=== PATIENT | female | born 1965 | race Caucasian/White ===

== ENCOUNTER 2017-03-13 15:59 | Inpatient (IN) ==
[2017-03-13 17:41] LABS: MANUAL DIFF NEEDED? NO
[2017-03-13 17:44] LABS: BASO% 1.2 % (0.0-0.8); EOS# 0.12 X1000 (0.0-0.7); EOS% 0.7 % (0.0-10.0); HEMATOCRIT 38.1 % (37.0-47.0); HEMOGLOBIN 12.7 g/dL (12.0-16.0); IMM GRAN% 0.6 % (0.0-0.5); LYMPH# 1.53 X1000 (1.2-3.4); LYMPH% 9.5 % (20.5-51.1); MCH 27.9 PG (27-31); MCHC 33.3 g/dL (33-37); MCV 83.6 FL (81-99); MONO# 1.38 X1000 (0.11-0.59); MONO% 8.6 % (1.7-9.3); NEUT% 79.4 % (42.2-75.2); PLT 254 X1000 (130-400); RBC 4.56 XMIL (4.2-5.4)
[2017-03-13] MEDS ORDERED: VANCOMYCIN IV PER PHARMACY MISC SCH (17:45)
[2017-03-13] MEDS ORDERED: ZOSYN 3.375 GM/NS 3.375 GM/50 ML IVPB IV SCH (17:45)
[2017-03-13 17:52] LABS: INR 1.06; PROTIME 11.2 Seconds (9.2-11.7)
[2017-03-13 17:59] LABS: HEMOGLOBIN A1C 7.4 % (4.8-6.0)
[2017-03-13] MEDS: MORPHINE IV PRN ×2 (18:06→22:04)
[2017-03-13 18:08] LABS: ALBUMIN 3.8 g/dL (3.5-5.0); CALCIUM 8.8 mg/dL (8.8-10.2); MAGNESIUM 1.5 mg/dL (1.5-2.7); TOTAL BILIRUBIN 0.57 mg/dL (0.20-1.00); TOTAL PROTEIN 7.6 g/dL (6.3-8.3)
[2017-03-13] MEDS: NS 1,000 ML IV SCH (18:08)
--- NOTE | 2017-03-13 18:12 | HISTORY AND PHYSICAL ---
CHIEF COMPLAINT: Right intergluteal abscess. HISTORY OF PRESENT ILLNESS: Mrs. Dodge is a 51-year-old female with a history of COPD, nicotine dependence, obstructive sleep apnea, chronic pain who presents from walk-in clinic with 4-day history of right intergluteal abscess. She has had pain and swelling that is increased in size and intensity since Thursday, she denies any fevers but does report chills. The area spontaneously ruptured and has been draining a foul-smelling purulent fluid which has been causing her a great amount of pain and stress. She reports not being able to eat and has been throwing up and has occasional diarrhea. She went to the walk-in clinic and was felt that this needed to be handled in the OR and she was directly admitted here. We are currently awaiting lab but her vitals are stable, she is not febrile, hypotensive or tachycardic. On physical exam, the entirety of the right gluteal area is edematous and erythematous. There is a small hole near the center of the abscess that is not draining any fluid at this time but is clearly where the abscess ruptured. She is now going to be admitted for further treatment and evaluation. PAST MEDICAL HISTORY: 1. COPD. 2. Obstructive sleep apnea. 3. Depression. 4. Hypertension. 5. Restless leg syndrome. 6. Chronic pain. 7. Questionable history of diabetes. Hemoglobin A1c done in 2013 showed 8% but she denies any history of diabetes. PAST SURGICAL HISTORY: Left knee x2, cataract surgery, lumbar laminectomy, neck surgery x2, breast biopsy. SOCIAL HISTORY: Patient smokes a pack a day. She reports half a gram of marijuana use a month. She denies alcohol use. She is and lives alone. She is on disability. FAMILY HISTORY: Mother is at the bedside. She has a history of tongue cancer. Father with laryngeal cancer. REVIEW OF SYSTEMS: A 14 point review of systems obtained and found to be negative with the exception of the HPI. HOME MEDICATIONS: Currently being compiled. ALLERGIES: To Haldol, oxycodone. PHYSICAL EXAMINATION: VITAL SIGNS: Blood pressure is 108/67, heart rate 85, respiratory rate 22, O2 saturation 100% on room air, temperature is 98.9 degrees. GENERAL: This is an obese female lying in hospital bed in no acute distress. NEUROLOGIC: She is awake, alert, oriented. She follows commands without focal deficits. HEENT: Head is atraumatic and normocephalic. Pupils are equal, round, reactive to light. Oral mucosa is moist. Trachea is midline. There is no JVD. CHEST: Clear auscultation bilaterally. CV: Regular rate and rhythm. S1-S2 is noted. No murmurs. GI: Soft, nondistended. She has some diffuse tenderness to palpation. There is no rigidity. RECTAL: Partal exam. Right gluteal area is erythematous and edematous with induration and small hole without drainage at this time as reported in the HPI. She does have noticeable wart like lesions about the rectum and perianal area. EXTREMITIES: Without edema, clubbing or cyanosis. Pulses are palpable bilaterally. DIAGNOSTIC DATA: Pending. ASSESSMENT/PLAN: 1. Right intergluteal abscess: We are currently drawing blood cultures, lactic acid and full chemistry and hematology panels. We are going to also check a CT of the abdomen and pelvis and start her on vancomycin and Zosyn and consult surgery. 2. Abdominal pain: Unclear as to the etiology but we are going to go ahead and check a CT of the abdomen and pelvis, give her some Zofran and fluids. 3. Hypertension: Will continue appropriate medications once they have been reconciled. 4. Chronic obstructive pulmonary disease: Will check a 2 view chest x-ray and add p.r.n. nebs every 6 hours, lungs are clear at this time. 5. Depression: Will continue appropriate medications once they have been compiled. 6. Nicotine dependence: Patient has been highly advised to quit smoking. Will write a nicotine patch and continue daily cessation education. 7. Deep vein thrombosis prophylaxis will be provided with Lovenox. Further recommendations to follow. Dictated by BARBARA Aguillon for Stefano Sorenson MD cc: BARBARA Aguillon MD [facility]
[2017-03-13] MEDS ORDERED: NS 2,000 ML IV ONE (18:13)
[2017-03-13 18:14] LABS: AMYLASE 21 U/L (20-200); HDL 22 mg/dL (45-65); LDL 100 mg/dL; LIPASE 33 U/L (13-60); POTASSIUM 2.5 mmol/L (3.5-5.1); TRIGLYCERIDES 264 mg/dL (35-135); VLDL 53 mg/dL
[2017-03-13] MEDS: NICODERM PATCH TD SCH (18:14)
[2017-03-13] MEDS ORDERED: MAGNESIUM SULFATE 2 GM/S.W.I. 2 GM/50 ML IVPB IV ONE (18:18)
--- NOTE | 2017-03-13 19:17 | Diag Imaging Result Doc PS360 ---
EXAM: ABDOMEN/PELVIS W/O CONTRAST INDICATION: gluteal abscess TECHNIQUE: COMPARISON: None. FINDINGS: There is mild mucous plugging involving a few bronchial branches at the right lung base. There is minimal right basilar atelectasis. There is diffuse hepatic steatosis. There is a 1.4 cm splenic hypodensity that statistically most likely represents a protein filled cyst or perhaps a small hemangioma. It is nonspecific. There is a 1.9 cm right adrenal mass that is low in density. Statistically it very likely represents an adenoma. The pancreas is unremarkable. There are couple tiny cyst density foci arising from the left kidney. There are no renal stones and there is no hydronephrosis. The urinary bladder is unremarkable. The appendix is normal. There has been a previous hysterectomy. The GI tract is grossly unremarkable. There is subcutaneous gluteal edema and a focal inflammatory opacity in the perianal soft tissues on the right measuring approximately 3.3 x 1.9 cm. This certainly may represent an abscess. However, this cannot be distinguished from inflammatory phlegmon with no IV contrast. IMPRESSION: 1.Focal inflammatory changes in the perianal region on the right assumed to represent small abscess. Please see above discussion. 2.Diffuse hepatic steatosis. 3.Mild mucous plugging at the right lung base with minimal subsegmental atelectasis. Electronically signed by Ildefonso Washington 03/13/2017 7:15 PM
--- NOTE | 2017-03-13 19:33 | Diag Imaging Result Doc PS360 ---
EXAM: CHEST-2 VIEWS INDICATION: cough TECHNIQUE: 2 views COMPARISON: 06/05/2015 FINDINGS: The lungs are grossly clear. There is no discrete pleural fluid collection or pneumothorax. The cardiomediastinal silhouette and central vasculature are grossly unremarkable. IMPRESSION: No evidence of acute pathology by plain radiograph. Electronically signed by Ildefonso Washington 03/13/2017 7:31 PM
--- NOTE | 2017-03-13 21:18 | CONSULTATION ---
DATE OF CONSULTATION: 03/13/2017 REASON FOR CONSULTATION: Right perianal abscess. HISTORY OF PRESENT ILLNESS: This is a 51-year-old female with a history of COPD, obstructive sleep apnea, chronic pain and nicotine dependence with multiple previous skin infections who presented today with a 4-day history of right perianal pain and swelling. It spontaneously ruptured and has been draining foul-smelling purulent fluid. It is worsened to direct touch and sitting on it. There are no relieving factors. She has not been on any antibiotics. She was sent for surgical evaluation, admission and IV antibiotics. PAST MEDICAL HISTORY: As described above in HPI. PAST SURGICAL HISTORY: Left knee surgery x2, cataract surgery, lumbar laminectomy, neck surgery x2, breast biopsy. ALLERGIES: Haldol, oxycodone. FAMILY HISTORY: Positive for tongue cancer in mother and laryngeal cancer the father. SOCIAL HISTORY: She smokes a pack of cigarettes per day and uses marijuana. She denies alcohol use. HOME MEDICATIONS: Lyrica, Xanax, Prozac, atenolol, Ambien. PHYSICAL EXAMINATION: Vital Signs: Vital signs: Temperature 98.4 degrees, pulse 81, respirations 16, blood pressure 100/53. General: Well-developed female who appears to be uncomfortable but nontoxic appearing. Neurologic: She is alert and oriented x4. No acute distress. Light touch is intact throughout. CV: Regular rate and rhythm. Respiratory: No work of breathing. She has bilateral breath sounds. GI: Soft, nontender, nondistended. No hernia appreciated. Extremities: No clubbing, cyanosis, or edema. Skin: Warm and dry. No rash. Rectal Exam: She does have significant erythema across her right gluteal skin. There is a focal area of induration and focal tenderness in the right perianal area and along the external skin. There is a opening perhaps a centimeter and a half long and a centimeter or 2 deep draining some purulent fluid. This wound was probed with a Q-Tip. I do not think it communicates with her rectum. There are also numerous wartlike lesions in the perianal area and adjacent to this abscess. LABORATORY: White blood cell count 16,000, hemoglobin 12. Sodium 136, potassium 2.5, chloride 88, CO2 31, BUN 19, creatinine 1.6, glucose 228. Hemoglobin A1c 7.4. Liver function tests essentially normal except for alkaline phosphatase of 128. Plasma lactate 2.3. Serum test negative. IMAGING: CT of abdomen, pelvis was reviewed by me. There is a focal inflammatory process in the right perianal soft tissue likely representing an abscess. There is also diffuse hepatic steatosis, a small cyst or hemangioma in the spleen and a small 1.9 cm right adrenal mass likely representing an adenoma. There are a few small cystic densities in the left kidney. ASSESSMENT/PLAN: A 51-year-old female with right gluteal perianal abscess. It is draining. She has significant cellulitis and pain and would benefit from admission for IV antibiotics and local wound care to check for significant improvement. If she does not improve then she may need trip to the operating room for further exploration and drainage and to rule out a fistula in ano. In addition, she will at some point need treatment of her condyloma and [employer] consultation may be needed to rule out any cervical lesions and to check her Pap smear. cc: MD Stefano Villa MD
[2017-03-13] MEDS: POTASSIUM CHLORIDE 20 MEQ/SWI 20 MEQ/100 ML IVPB IV SCH (21:41)
[2017-03-13] MEDS: DUONEB (A & A) INH PRN (21:45)
[2017-03-13] MEDS: ZOFRAN IV PRN (22:04)
[2017-03-13] MEDS: VANCOMYCIN 1,800 MG in NS 250 ML IV SCH (23:44)
[2017-03-13] MEDS: HUMALOG SUBQ SCH (23:49)
[2017-03-14] MEDS ORDERED: AMBIEN PO PRN (00:01)
[2017-03-14] MEDS: MORPHINE IV PRN ×5 (02:35→21:32)
[2017-03-14] MEDS: ZOSYN 2.25 GM/NS 2.25 GM/50 ML IVPB IV SCH ×3 (02:35→18:08)
[2017-03-14] MEDS: ZOFRAN IV PRN ×5 (02:35→21:33)
[2017-03-14] MEDS: NS 1,000 ML IV SCH ×2 (02:36→07:01)
[2017-03-14] MEDS: POTASSIUM CHLORIDE 20 MEQ/SWI 20 MEQ/100 ML IVPB IV SCH (03:32)
[2017-03-14 04:02] LABS: URINE SOURCE CLEAN CATCH
[2017-03-14 04:05] LABS: BILIRUBIN URINE NEGATIVE (NEGATIVE); BLOOD URINE SMALL (NEGATIVE); COLOR YELLOW; GLUCOSE URINE NEGATIVE (NEGATIVE); LEUKOCYTES URINE LARGE (NEGATIVE); NITRITE URINE POSITIVE (NEGATIVE); PROTEIN URINE 100 mg/dL (NEGATIVE); SP GRAVITY URINE 1.024; TURBIDITY URINE TURBID (CLEAR); UROBILINOGEN URINE NORMAL (NORMAL)
[2017-03-14 04:06] LABS: URINE MICRO REVIEW NEEDED? YES
[2017-03-14 04:26] LABS: UR CREAT RANDOM 244.3 mg/dL (11-20)
[2017-03-14 04:29] LABS: UR EPITHELIAL CELLS >10 /HPF (<10); URINE BACTERIA 4+ /HPF; URINE CULTURE NEEDED? YES; URINE RBC <10 /HPF (<10); URINE WBC TNTC /HPF (<10)
[2017-03-14 06:04] LABS: HEMATOCRIT 35.4 % (37.0-47.0); HEMOGLOBIN 11.5 g/dL (12.0-16.0); MCH 27.4 PG (27-31); MCHC 32.5 g/dL (33-37); MCV 84.5 FL (81-99); MPV 11.9 FL (7.4-10.4); RBC 4.19 XMIL (4.2-5.4)
[2017-03-14 06:12] LABS: CALCIUM 8.7 mg/dL (8.8-10.2); POTASSIUM 2.6 mmol/L (3.5-5.1)
[2017-03-14] MEDS: HUMALOG SUBQ SCH ×5 (06:41→20:57)
[2017-03-14] MEDS ORDERED: KLOR-CON PO ONE (08:04)
[2017-03-14] MEDS: LOVENOX SUBQ SCH (08:53)
[2017-03-14] MEDS: NICODERM PATCH TD SCH (08:53)
[2017-03-14] MEDS: DUONEB (A & A) INH PRN ×3 (09:05→21:47)
[2017-03-14] MEDS: XANAX PO PRN ×2 (14:00→21:02)
--- NOTE | 2017-03-14 14:11 | PROGRESS NOTE ---
DATE: 03/14/2017 SUBJECTIVE: She continues to complain of some perianal pain. OBJECTIVE: Vital Signs: She is afebrile. Vital signs are stable. General: She is awake and alert. No acute distress. Skin: The perianal infection is about the same as yesterday. LABORATORY: White blood cell count 12,000, hemoglobin 11. Electrolytes reviewed and notable for potassium of 2.6, creatinine is improved to 1.4. A wound culture Gram stain shows gram-negative rods and gram-positive cocci. ASSESSMENT AND PLAN: A 51-year-old female with perianal abscess and significant buttock cellulitis. She will continue vancomycin and Zosyn. We are awaiting culture data. We are providing local wound care with cleaning the wound and packing it. Her white blood cell count is starting to improve. She also is being treated for a UTI. cc: MD Stefano Villa MD
--- NOTE | 2017-03-14 14:27 | PROGRESS NOTE ---
DATE: 03/14/2017 SUBJECTIVE: This patient is complaining of gluteal pain. She denies nausea, vomiting, no diarrhea, no constipation. Surgery department on board. Will follow their recommendations. OBJECTIVE: Vital Signs: Temperature 97.6 degrees, pulse 68, respiratory rate 18, blood pressure 125/102, O2 saturation 95% on room air. HEENT: Head normocephalic. No trauma. PERRLA. Neck: Supple. No JVD. No masses. Central trachea. Chest: Clear to auscultation. No wheezing. No rales. Cardiovascular: RRR. No murmurs. Abdomen: Soft, nontender, nondistended. No hepatosplenomegaly. Rectal area: Right gluteal area is erythematous with induration, there is a small hole without drainage at this time, she does have noticeable wart like lesions about the rectum and perianal area. LABORATORY: WBC 12.1, hemoglobin 11.5, hematocrit 35.4, platelets 221,000. Sodium 138, potassium 2.6, chloride 93, bicarbonate 31, BUN 20, creatinine 1.4, glucose 180, calcium 8.7. Urine culture negative. Right buttock secretion culture negative and blood culture negative so far. ASSESSMENT AND PLAN: 1. Right gluteal abscess. Continue with broad spectrum antibiotics, continue with IV fluid, surgery department following this patient. 2. Abdominal pain. This is better. We did a CT of the abdomen and pelvis that showed a focal inflammatory changes in the perianal region and right assumed to represent a small abscess, hepatic steatosis. 3. Hypertension. Continue with home medication. 4. Chronic obstructive pulmonary disease not in exacerbation. Continue with the same management. 5. Depression. Continue with home medications, I put this patient back on her medications today. 6. Nicotine dependence. This patient has been highly advised against tobacco abuse. Will continue with daily cessation education and nicotine patch. 7. Deep vein thrombosis prophylaxis. Continue with Lovenox. 8. Hypokalemia. I will replace the potassium today. cc: Stefano Sorenson MD
[2017-03-14] MEDS: LYRICA PO SCH (20:57)
[2017-03-14] MEDS ORDERED: BENADRYL PO PRN (23:21)
[2017-03-15] MEDS: ZOSYN 2.25 GM/NS 2.25 GM/50 ML IVPB IV SCH ×6 (00:38→18:08)
[2017-03-15] MEDS: ZOFRAN IV PRN ×6 (01:53→22:23)
[2017-03-15] MEDS: MORPHINE IV PRN ×6 (01:53→22:22)
[2017-03-15] MEDS: NS 1,000 ML IV SCH ×2 (04:08→10:00)
[2017-03-15] MEDS: HUMALOG SUBQ SCH ×4 (06:05→20:39)
[2017-03-15 06:17] LABS: HEMATOCRIT 31.5 % (37.0-47.0); HEMOGLOBIN 10.1 g/dL (12.0-16.0); MCH 28.1 PG (27-31); MCHC 32.1 g/dL (33-37); MCV 87.7 FL (81-99); MPV 11.9 FL (7.4-10.4); RBC 3.59 XMIL (4.2-5.4)
[2017-03-15 06:38] LABS: CALCIUM 8.2 mg/dL (8.8-10.2)
[2017-03-15] MEDS ORDERED: KLOR-CON PO ONE (08:02)
[2017-03-15] MEDS: PROZAC PO SCH (08:05)
[2017-03-15] MEDS: VANCOMYCIN 1,800 MG in NS 250 ML IV SCH (08:05)
[2017-03-15] MEDS: LYRICA PO SCH ×3 (08:06→16:36)
[2017-03-15] MEDS: NICODERM PATCH TD SCH (08:06)
[2017-03-15] MEDS: LOVENOX SUBQ SCH (08:07)
[2017-03-15] MEDS: XANAX PO PRN ×3 (08:20→20:44)
--- NOTE | 2017-03-15 09:20 | PROGRESS NOTE ---
DATE: 03/15/2017 SUBJECTIVE: She continues to complain of perianal pain. OBJECTIVE: Vital Signs: She is afebrile. Vital signs are stable. General: She is alert and oriented x4. No acute distress. Skin: The perianal area was examined. There is definite decrease in the erythema of her right gluteal skin. The perianal abscess continues to have some cloudy purulent drainage. However, there is no deep tracking and no more fluctuance of the area. Laboratory: White blood cell count 8000. The wound culture is pending. ASSESSMENT/PLAN: A 51-year-old female with perianal abscess which appears to be improving. We will continue local wound care and Zosyn and vancomycin as we await the wound culture results. cc: MD Stefano Villa MD
--- NOTE | 2017-03-15 14:34 | PROGRESS NOTE ---
DATE: 03/15/2017 SUBJECTIVE: This patient is still complaining of right gluteal pain. She denies nausea, vomiting, diarrhea. No constipation. Surgery Department on board. No plan for surgery at this moment. We will follow the recommendations. OBJECTIVE: Vital Signs: Temperature 98.5 degrees, pulse 92, respiratory rate 22, blood pressure 123/57, oxygen saturation 97% on room air. HEENT: Head normocephalic. No trauma. PERRLA. Neck: Supple. No JVD. No masses. Central trachea. Chest: Clear to auscultation. No wheezing. No rales. Abdomen: Soft, nontender, nondistended. No hepatosplenomegaly. Cardiovascular: Regular rhythm and rate. No murmurs. Rectal: Right gluteal area is indicated erythematous with induration. This is a small hole without drainage at this time because Surgery just packed this. She does have noticeable wart-like lesions around the rectal area and around the rectum and perianal area. LABORATORY: WBC 8, hemoglobin 10.1, hematocrit 31.5, platelet 186,000. Sodium 140, potassium 3, chloride 97, bicarbonate 29, BUN 17, creatinine 1.5, glucose 143, calcium 8.2. ASSESSMENT AND PLAN: 1. Right gluteal abscess. Continue with broad spectrum antibiotics, continue with IV fluids. Surgery Department is following this patient. 2. Hypokalemia. I will replace the potassium today. 3. Abdominal pain. This is getting better. 4. Hypertension. Continue with home medication. 5. Chronic obstructive pulmonary disease. Not in exacerbation. 6. Depression. Continue with home medication. 7. Nicotine dependence. This patient has been highly advised against tobacco abuse. I will continue with daily cessation education and nicotine patch. cc: Stefano Sorenson MD
[2017-03-15] MEDS: ULTRAM PO PRN (20:44)
[2017-03-15] MEDS: DUONEB (A & A) INH PRN (23:17)
[2017-03-16] MEDS: NS 1,000 ML IV SCH ×3 (00:32→14:02)
[2017-03-16] MEDS: ZOSYN 2.25 GM/NS 2.25 GM/50 ML IVPB IV SCH ×4 (00:32→14:02)
[2017-03-16] MEDS: MORPHINE IV PRN ×5 (05:56→22:25)
[2017-03-16] MEDS: ZOFRAN IV PRN ×3 (05:56→22:26)
[2017-03-16] MEDS: HUMALOG SUBQ SCH ×4 (06:03→21:14)
[2017-03-16 07:08] LABS: HEMATOCRIT 32.1 % (37.0-47.0); HEMOGLOBIN 10.1 g/dL (12.0-16.0); MCH 28.1 PG (27-31); MCHC 31.5 g/dL (33-37); MCV 89.2 FL (81-99); MPV 11.9 FL (7.4-10.4); RBC 3.6 XMIL (4.2-5.4)
[2017-03-16 07:16] LABS: CALCIUM 8.9 mg/dL (8.8-10.2); POTASSIUM 3.3 mmol/L (3.5-5.1)
[2017-03-16] MEDS ORDERED: KLOR-CON PO ONE (07:49)
[2017-03-16] MEDS: LYRICA PO SCH ×3 (09:10→21:14)
[2017-03-16] MEDS: PROZAC PO SCH (09:10)
[2017-03-16] MEDS: XANAX PO PRN ×3 (09:10→22:25)
[2017-03-16] MEDS: LOVENOX SUBQ SCH (09:11)
[2017-03-16] MEDS: NICODERM PATCH TD SCH (09:12)
--- NOTE | 2017-03-16 10:23 | PROGRESS NOTE ---
DATE: 03/16/2017 SUBJECTIVE: This patient still complaining of right gluteal pain. She denies nausea, vomiting, and constipation. She has been having diarrhea. I will ask for a clostridium difficile toxin and antigen to rule out clostridium difficile colitis. Surgery Department is following this patient. I have consulted Infectious Disease Department. Cultures showed gram-positive cocci on the right buttock. OBJECTIVE: Vital Signs: Temperature 98.4 degrees, pulse 81, respiratory rate 16, blood pressure 136/66, oxygen saturation 90 on 2 L of nasal cannula. HEENT: Head normocephalic. No trauma. Pupils equal, round, and reactive to light and accommodation. Neck: Supple. No JVD. No masses. Central trachea. Chest: Clear to auscultation. No wheezing. No rales. Abdomen: Soft, nontender, nondistended. No hepatosplenomegaly. Cardiovascular: Regular rate and rhythm. No murmurs. Gluteal Area: Gluteal area on the right side she has an erythematous area with redness and induration. There is a small hole that is draining a secretion that is yellowish. Also she does have wart-like lesions around the rectal area and perianal area. Neurological Examination: The patient is alert and oriented x3. No focal deficits. LABORATORY: WBC 8.5, hemoglobin 10.1, hematocrit 32.1 platelets 205,000. Sodium 139, potassium 3.3, chloride 98, bicarbonate 28. BUN 12, creatinine 1.5, glucose 150. Calcium 8.9, magnesium 1.7. ASSESSMENT AND PLAN: 1. Right gluteal abscess. We have a positive culture that showed gram-positive cocci. Continue with broad spectrum antibiotics, IV fluids. Surgery department is following this patient. 2. Hypokalemia. I will replace the potassium today. 3. Abdominal pain. This is getting better. 4. Diarrhea. I will ask for a clostridium difficile antigen and toxin today to rule out clostridium difficile colitis. 5. Chronic obstructive pulmonary disease, not in exacerbation. 6. Depression. Continue with home medication. 7. Nicotine dependence. This patient has been highly advised against tobacco abuse. 8. Tobacco abuse. I will continue with daily cessation education and nicotine patch. cc: Stefano Sorenson MD
[2017-03-16] MEDS ORDERED: VANCOMYCIN ORAL SOLN PO SCH (17:00)
--- NOTE | 2017-03-16 17:12 | CONSULTATION ---
DATE OF CONSULTATION: 03/16/2017 CONCLUSION: The patient has a right buttock abscess which is draining through a fistula. She also after being started on antibiotics for 2 days developed severe diarrhea. Her Clostridium difficile antigen is positive but the Clostridium difficile toxin is negative. Technically speaking this means that the patient does not have Clostridium difficile causing her diarrhea. I think given the fact that she was been on put on antibiotics, she has diarrhea and has the Clostridium difficile antigen, I still think that the diarrhea is actually being caused by Clostridium difficile and its toxin but it is in such a low amount that it might not be detected on the test for it. RECOMMENDATIONS: The buttock abscess on Gram stain has gram-positive cocci. Therefore, I am going to keep the vancomycin by IV going but I am going to stop the Zosyn. Also I have added p.o. vancomycin. DISCUSSION: The patient tells me that approximately a week ago she started having fever and noticed that there was some drainage coming from her right buttock. Also, she developed progressive pain in the area. Approximately 2 days ago she started having diarrhea. The patient's lab study shows the CBC initially had a white count of 16,000, now it is 8,540, hemoglobin 10.1, and platelet count 205,000. Creatinine is 1.5, GFR is 37. Urinalysis showed bacteria and white blood cells, however, the culture was read as no pathogenic growth. As mentioned above, the Clostridium difficile antigen was positive but the toxin was negative. A Gram stain taken from the drainage coming from the patient's right buttock shows gram-positive cocci. The patient in the past 2 days has noticed some dyspnea. She is not having. She is not having any chest pain. 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 She had a hysterectomy. REVIEW OF SYSTEMS: Eyes and ears: She denies difficulty hearing or seeing. Neck: No stiffness. Respiratory: The patient in the past 2 days has had some shortness of breath but none before that. She is not coughing. Cardiac: No chest pain or palpitations. Genitourinary: No dysuria or flank pain. Gastrointestinal: No nausea or vomiting but as mentioned above in the past 2 days she has developed diarrhea. Bones, joints, muscles: Patient had surgery on her left knee and it periodically gives her pain without swelling. Neurologic: No seizures. No motor or sensory deficit. Endocrine: Patient has been informed now that she is a diabetic. She does not have any thyroid disease. PREVIOUS HOSPITALIZATIONS AND OPERATIONS: She had surgery on her left knee. She had C-spine and lumbar spine surgery. She also had 2 bladder surgeries. MEDICAL DISEASES: As mentioned above, patient has been informed now that she is diabetic. She also has hypertension and depression. INFECTIOUS DISEASE HISTORY: Positive for UTI. Negative for pneumonia. FAMILY HISTORY: Positive for diabetes mellitus, hypertension, myocardial infarction, and stroke. SOCIAL HISTORY: The patient lives in [place]. She smoke cigarettes. She does not drink alcoholic beverages or abuse drugs. She is . She lives alone. She has a dog as a pet. She is disabled. ALLERGIES: Haldol and oxycodone. HOME MEDICATIONS: Ambien, Lyrica, Prozac, atenolol/chlorthalidone, and Xanax. PHYSICAL EXAMINATION: Vital Signs: Temperature is 98.3 degrees, pulse 75, respirations 16, blood pressure 118/64. Patient is 5 feet 6 inches tall, weighs 221 pounds. General: This is an obese, middle-aged female. She is in no acute distress at this time. Head eyes, ears, nose, throat: She can hear my spoken words and see near objects. No drainage is noted from the nose or ears. She is wearing dentures. Neck: No meningismus. Thorax: Increased AP diameter to the chest. Lungs: Clear to auscultation. Cardiovascular: Heart rate is regular. Abdomen: Soft and nontender. Pelvic examination: I examined the patient's right buttock. There is a fistulous opening near the anus and it has some lesions circling it but not actually vesicles, but they may have been vesicles that had burst already. They may be also plantar warts. Neurologic: Patient is alert. She can move her extremities. There is no tremor. Her sensation is intact to touch. Her memory as regarding her medical history is intact. Integument: No rash noted. Thank you for the consultation. cc: MD Stefano Frey MD
[2017-03-16] MEDS: VANCOMYCIN ORAL SOLN PO SCH ×2 (18:43→23:37)
[2017-03-16] MEDS: VANCOMYCIN 1,800 MG in NS 250 ML IV SCH (21:14)
[2017-03-17] MEDS ORDERED: CALMOSEPTINE OINTMENT TOP PRN (02:44)
[2017-03-17] MEDS: ZOFRAN IV PRN ×5 (02:47→19:56)
[2017-03-17] MEDS: MORPHINE IV PRN ×5 (02:48→19:33)
[2017-03-17] MEDS: NS 1,000 ML IV SCH ×2 (04:47→22:18)
[2017-03-17] MEDS: VANCOMYCIN ORAL SOLN PO SCH ×3 (04:47→18:49)
[2017-03-17] MEDS: HUMALOG SUBQ SCH ×4 (06:05→22:09)
[2017-03-17 06:11] LABS: MANUAL DIFF NEEDED? NO
[2017-03-17 06:29] LABS: BASO% 0.3 % (0.0-0.8); EOS# 0.33 X1000 (0.0-0.7); EOS% 4.5 % (0.0-10.0); HEMATOCRIT 27.6 % (37.0-47.0); HEMOGLOBIN 8.4 g/dL (12.0-16.0); IMM GRAN# 0.08 X1000 (0.0-0.04); IMM GRAN% 1.1 % (0.0-0.5); LYMPH# 1.99 X1000 (1.2-3.4); MCH 26.9 PG (27-31); MCHC 30.4 g/dL (33-37); MCV 88.5 FL (81-99); MONO# 0.61 X1000 (0.11-0.59); MONO% 8.3 % (1.7-9.3); MPV 11.4 FL (7.4-10.4); NEUT% 58.8 % (42.2-75.2); PLT 186 X1000 (130-400); RBC 3.12 XMIL (4.2-5.4)
[2017-03-17 06:37] LABS: CALCIUM 7.3 mg/dL (8.8-10.2); POTASSIUM 3.1 mmol/L (3.5-5.1)
[2017-03-17] MEDS: LOVENOX SUBQ SCH (08:53)
[2017-03-17] MEDS: LYRICA PO SCH ×3 (08:53→22:18)
[2017-03-17] MEDS: NICODERM PATCH TD SCH (08:53)
[2017-03-17] MEDS: PROZAC PO SCH (08:53)
[2017-03-17] MEDS: XANAX PO PRN ×2 (10:54→15:15)
[2017-03-17] MEDS: ULTRAM PO PRN ×2 (13:29→22:02)
[2017-03-17] MEDS ORDERED: KLOR-CON PO ONE (15:10)
--- NOTE | 2017-03-17 15:28 | PROGRESS NOTE ---
DATE: 03/17/2017 SUBJECTIVE: Patient is still complaining of more pain in the right area. Denies any fever or chills. OBJECTIVE: Vitals: Temperature is 98.4, heart rate 65, respiratory rate 20, blood pressure 110/62. O2 saturation 95% on 1 L nasal cannula. General: This is a 51-year-old female lying in bed, in no acute distress. HEENT: Head is normocephalic, atraumatic. Anicteric sclerae and pale conjunctivae. Mucous membranes moist. Neck: Supple. No JVD noted. No carotid bruits. No lymphadenopathy. No thyromegaly. Cardiovascular: S1, S2 heard. No murmurs, gallops, or rubs. Regular rate and rhythm. Respiratory: Clear bilaterally to auscultation. No work of breathing or using accessory muscles. Abdomen: Soft, nontender to palpation. Bowel sounds present. No organomegaly. Extremities: No clubbing, cyanosis, or edema. Peripheral pulses present in both legs and gluteal area on the right side. There is a small hole with drain secretion. Neurological: Patient is alert and oriented x3. Moves 4 extremities. LABORATORY DATA: White cell count 7.38. Hemoglobin 8.4. Hematocrit 27.6. Platelets 196,000. Sodium 142, potassium 3.1, chloride 106, creatinine 1.2. ASSESSMENT/PLAN: 1. Right gluteal abscess. Positive culture for positive cocci. Currently this patient is on vancomycin. Dr. Alarcon from Infectious Disease is following this patient and he has continued Zosyn. We will continue following his recommendations. 2. Hypokalemia we will supplement potassium today. 3. C. difficile infection. That exam returned positive for Clostridium difficile so she has been started on vancomycin oral as per Dr. Alarcon. We will follow recommendations. 4. Chronic obstructive pulmonary disease, not in an exacerbation. 5. Depression. We will continue home medications. 6. Nicotine dependence. The patient has been extensively advised about stopping smoking. cc: Marv Petty MD
--- NOTE | 2017-03-17 17:37 | PROGRESS NOTE ---
DATE: 03/17/2017 SUBJECTIVE: The patient says her bottom is not hurting as much as it was but it is still quite sore. OBJECTIVE: Vital signs: She is afebrile. Vital signs are stable. General: She is alert and oriented x4. No acute distress. Skin: The buttock abscess is improving. There is less drainage and the erythema of the buttocks skin has improved. CULTURE DATA: The wound culture shows gram-positive cocci and gram-negative rods. The identification has not been complete. ASSESSMENT AND PLAN: Continue antibiotic therapy as you were doing. At this point we will stop the packing of the wound and just clean it daily. cc: Caleb Owen MD
[2017-03-17] MEDS: VANCOMYCIN 1,800 MG in NS 250 ML IV SCH (18:49)
[2017-03-18] MEDS: ZOFRAN IV PRN ×5 (00:54→22:37)
[2017-03-18] MEDS: MORPHINE IV PRN ×6 (00:54→22:38)
[2017-03-18] MEDS: VANCOMYCIN ORAL SOLN PO SCH ×5 (00:55→22:39)
[2017-03-18] MEDS: HUMALOG SUBQ SCH ×3 (06:19→16:27)
[2017-03-18] MEDS: NS 1,000 ML IV SCH ×2 (06:51→23:00)
[2017-03-18] MEDS: NICODERM PATCH TD SCH (08:15)
[2017-03-18] MEDS: LYRICA PO SCH ×3 (08:15→16:27)
[2017-03-18] MEDS: LOVENOX SUBQ SCH (08:15)
[2017-03-18] MEDS: PROZAC PO SCH (08:15)
[2017-03-18 13:05] LABS: CALCIUM 8.1 mg/dL (8.8-10.2)
--- NOTE | 2017-03-18 14:04 | PROGRESS NOTE ---
DATE: 03/18/2017 SUBJECTIVE: Patient reports that she still has pain in the right buttock area. Denies any fever, chills. OBJECTIVE: Vital Signs: Temperature 97.6 degrees, heart rate 72, respiratory rate 18, blood pressure 105/54, O2 saturation 96% on 2 L nasal cannula. General Examination: This is a 51-year- old female lying in bed, in no acute distress. HEENT: Head is normocephalic, atraumatic. Anicteric sclerae and pale conjunctivae. Mucous membranes moist. Neck: Supple. No JVD noted. No carotid bruits. No lymphadenopathy. No thyromegaly. Cardiovascular: S1, S2 heard. No murmurs, gallops, or rubs. Regular rate and rhythm. Respiratory: Clear bilaterally to auscultation. No work of breathing or using accessory muscles. Abdomen: Soft. Nontender to palpation. Bowel sounds present. No organomegaly. Extremities: No clubbing, cyanosis, or edema. Peripheral pulses present in both legs. Neurological: Patient is alert and oriented x3. Moves 4 extremities. LABORATORY DATA: Reviewed. ASSESSMENT AND PLAN: 1. Right gluteal abscess. Currently the patient is on vancomycin IV. Dr. Alarcon from infectious disease is following this patient. Zosyn has been discontinued by him. We will continue following his recommendations. 2. Clostridium difficile infection. Patient actually is just having 2 episodes of diarrhea today. We will continue with vancomycin oral. 3. Hypokalemia. We are going to supplement potassium today. 4. Chronic obstructive pulmonary disease. Patient is going to be provided breathing treatments as needed for shortness of breath. 5. Depression. We will continue with home medications. 6. Nicotine dependence. Patient has been extensively advised about stopping smoking. cc: Marv Petty MD
[2017-03-18] MEDS: VANCOMYCIN 1,800 MG in NS 250 ML IV SCH (16:27)
[2017-03-18] MEDS: XANAX PO PRN (16:27)
--- NOTE | 2017-03-18 19:35 | PROGRESS NOTE ---
DATE: 03/18/2017 PRESENT ILLNESS: The patient has a buttock abscess. She also had diarrhea. Her Clostridium difficile antigen was positive but the Clostridium difficile toxin was negative. I palpated both buttocks and I could not find any mass lesion or fluctuant lesion. Patient's diarrhea has cleared. MEDICATIONS: The patient is on vancomycin IV and p.o. PHYSICAL EXAMINATION: Vital Signs: Temperature is 97.9, pulse 67, respirations 18, blood pressure 116/60. General: The patient is obese. She has no difficulty breathing. She complains of some pain in her buttock, however. Lungs: Clear to auscultation. Cardiovascular: Regular heart rate. Abdomen: Soft and nontender. Skin: Buttocks as mentioned above , I did not feel any masses that were indurated or any fluctuant masses. LAB AND X-RAY: Creatinine 1.3, GFR 44. No other new lab. No new radiologic procedure. ASSESSMENT AND PLAN: The patient has a buttock abscess which has been drained. She also has had diarrhea which is cleared. My plan is if agreeable with Dr. Owen and Dr. Poon , I think the patient could go home tomorrow. I have written out a prescription for Keflex 500 mg p.o. every 8 hours for 10 days. I further requested that the patient see me back in the office in 2 weeks. COMORBIDITIES: Include diabetes. Also the patient is obese and as a result of this, there is probably a lot of tissues rubbing against each other, which could cause infection also. cc: Hiro Alarcon MD MTDD
[2017-03-19] MEDS: ZOFRAN IV PRN (02:45)
[2017-03-19] MEDS: MORPHINE IV PRN ×4 (02:46→14:37)
[2017-03-19] MEDS: VANCOMYCIN ORAL SOLN PO SCH ×2 (05:30→11:57)
[2017-03-19] MEDS: HUMALOG SUBQ SCH ×3 (05:31→11:42)
[2017-03-19 06:28] LABS: MANUAL DIFF NEEDED? NO
[2017-03-19 06:47] LABS: BASO% 0.5 % (0.0-0.8); EOS# 0.23 X1000 (0.0-0.7); HEMATOCRIT 30.3 % (37.0-47.0); HEMOGLOBIN 9.3 g/dL (12.0-16.0); IMM GRAN# 0.22 X1000 (0.0-0.04); IMM GRAN% 2.9 % (0.0-0.5); LYMPH# 2.47 X1000 (1.2-3.4); LYMPH% 32.3 % (20.5-51.1); MCHC 30.7 g/dL (33-37); MCV 88.1 FL (81-99); MONO# 0.64 X1000 (0.11-0.59); MONO% 8.4 % (1.7-9.3); NEUT% 52.9 % (42.2-75.2); PLT 237 X1000 (130-400); RBC 3.44 XMIL (4.2-5.4)
[2017-03-19 07:05] LABS: CALCIUM 8.3 mg/dL (8.8-10.2); POTASSIUM 3.9 mmol/L (3.5-5.1)
[2017-03-19] MEDS: XANAX PO PRN ×2 (08:33→14:36)
[2017-03-19] MEDS: PROZAC PO SCH (08:34)
[2017-03-19] MEDS: LOVENOX SUBQ SCH (08:35)
[2017-03-19] MEDS: NICODERM PATCH TD SCH (08:35)
[2017-03-19] MEDS: LYRICA PO SCH (08:35)
[2017-03-19 09:17] VITALS: BP 113/69
[2017-03-19] MEDS: ULTRAM PO PRN (11:40)
[2017-03-19] MEDS ORDERED: LASIX IV ONE (12:17)
[2017-03-19] MEDS: NS 1,000 ML IV SCH (12:42)
--- NOTE | 2017-03-19 17:42 | DISCHARGE SUMMARY ---
ADMISSION DATE: 03/13/2017 DISCHARGE DATE: 03/19/2017 CONSULTATIONS: 1. Dr. Caleb Owen, with General Surgery. 2. Dr. Hiro Alarcon with Infectious Disease. PERTINENT PROCEDURES: 1. Chest x-ray showed no evidence of acute pathology. 2. Abdomen and pelvis CT showed focal inflammatory changes in the perianal region at the right. This seemed to represent small abscesses, diffuse hepatic steatosis. Mild mucus plugging at the right lung base and minimal submental atelectasis. DISCHARGE DIAGNOSES: 1. Right gluteal abscess. He received local wound packing as well as IV antibiotics with Infectious Disease. Followed by General Surgery. She will continue on Keflex 500 mg p.o. every 8 hours for 10 days. She will see Dr. Hiro Alarcon back in his office in 2 weeks. Her wound will now just need daily cleaning. Her packing was stopped. Stable. 2. Diarrhea, Clostridium difficile antigen was positive but the Clostridium toxin was negative. Her diarrhea has cleared. She had been on vancomycin IV and p.o. 3. Chronic obstructive pulmonary disease without exacerbation. 4. Depression continue home medications. 5. Nicotine dependence. The patient has been educated daily about smoking cessation. HOSPITAL COURSE: Briefly, this is a 51-year-old, female, with history of COPD, nicotine dependence, obstructive sleep apnea and chronic pain presented from walk-in clinic with 4 day history of right intergluteal abscess. She had pain and swelling that increased in size and intensity since Thursday. She denied any fevers but did report chills. The area spontaneously ruptured and had been draining a foul smelling, purulent fluid and had been causing her a great amount of pain and stress. She reported not being able to eat or drink and had been throwing up, and has occasional diarrhea. She went to the walk-in clinic. It was felt that she needed to be handled in the OR and was directly admitted to [facility]. With her being in a direct admission they were currently awaiting labs however her vital signs were stable. She was not febrile, hypotensive nor tachycardic. On physical examination, the entirety of the right gluteal area was edematous and erythematous. There was a small hole near the center of the abscess that was not draining any fluid but it was clearly where the abscess ruptured. Blood cultures obtained as well as lactic acid and full chemistry and hematology panel as well as a CT of the abdomen and pelvis. The patient was started on broad-spectrum antibiotics and surgery was consulted. She was educated about smoking cessation as well as the means to quit. She does have a history of COPD so she had added DuoNeb p.r.n. Dr. Owen agreed with admission IV antibiotics and local wound care to check for significant improvement. Her white count did improve. She was also being treated for a UTI. She started complaining of diarrhea. Her cultures were growing gram positive cocci from her wound. Her Clostridium difficile antigen was positive for her Clostridium difficile toxin was negative. Technically that means that the patient does not have Clostridium difficile causing her diarrhea. Dr. Alarcon continued the patient on IV vancomycin and stopped the Zosyn and added p.o. vancomycin. Her buttock abscess was done improving. She was having less drainage and erythema. They did stop the packing of the wound and changed it to just cleaning it daily. Her diarrhea has cleared. Dr. Alarcon, Dr. Owen and Dr. Poon felt that the patient is appropriate for discharge today. She is being discharged with prescription for Keflex 500 mg p.o. every 8 hours for 10 days. She will follow up with Dr. Hiro Alarcon in 2 weeks. VITAL SIGNS AT TIME OF DISCHARGE: Temperature is 97.6, heart rate 69, respirations 20, blood pressure 113/69, O2 is 97% on room air. DISCHARGE DIET: Diabetic. DISCHARGE MEDICATIONS: As per Dr. Poon: 1. Xanax 1 mg p.o. t.i.d. p.r.n. 2. Atenolol/chlorthalidone 100/25, 50 mg p.o. daily. 3. Keflex 500 mg p.o. q.8 hours. 4. Prozac 40 mg p.o. daily. 5. Lyrica 150 mg p.o. t.i.d. 6. Ultram 50 mg p.o. q.4 hours p.r.n. 7. Ambien 10 mg p.o. at bedtime. DISPOSITION: The patient is being discharged home with p.o. antibiotics. FOLLOWUP INSTRUCTIONS: She will follow up with Dr. Hiro Alarcon in [address] Owen as he is instructed as well as her primary care physician Dr. Mark Perales in 1 week. She can return to the ED for any worsening of symptoms. Dictated by BARBARA Felix for Marv Petty MD cc: MD Mark Sugsg MD Jason R. Seale, MD Leroy F. Harris, MD
[2017-03-19] MEDS ORDERED: LASIX IV SCH (21:00)
== END 2017-03-19 15:00 | disposition home or self-care (01) ==
LOC: SUATTDRO 15:59 → 4N 15:59 → 3N 03-17 11:38
PROVIDERS: ATTEND Internal Medicine

== ENCOUNTER 2018-10-19 07:38 | Observation (INO) ==
--- NOTE | 2018-09-22 09:53 | EKG Report ---
Test Performed on : 09/22/2018 09:50:53 AM Test Reason : pat Blood Pressure : / mmHG Vent. Rate : 051 BPM Atrial Rate : 051 BPM P-R Int : 162 ms QRS Dur : 076 ms QT Int : 444 ms P-R-T Axes : 022 007 054 degrees QTc Int : 409 ms Sinus bradycardia. Cannot rule out Anterior infarct (cited on or before 24-MAR-2017) Abnormal ECG When compared with ECG of 24-MAR-2017 12:22, No significant change was found Confirmed by Saleem KELLY, Ismael Coyle ([id number]) on 09/23/2018 7:09:48 AM
[2018-09-22 10:38] LABS: URINE SOURCE CLEAN CATCH
[2018-09-22 10:44] LABS: BASO# 0.02 X1000 (0.0-0.2); BASO% 0.1 % (0.0-0.8); EOS# 0.24 X1000 (0.0-0.7); EOS% 1.7 % (0.0-10.0); HEMATOCRIT 42.2 % (37.0-47.0); HEMOGLOBIN 13.6 g/dL (12.0-16.0); IMM GRAN# 0.05 X1000 (0.0-0.04); IMM GRAN% 0.3 % (0.0-0.5); LYMPH# 3.14 X1000 (1.2-3.4); LYMPH% 21.7 % (20.5-51.1); MCH 27.4 PG (27-31); MCHC 32.2 g/dL (33-37); MCV 85.1 FL (81-99); MONO# 1.13 X1000 (0.11-0.59); MONO% 7.8 % (1.7-9.3); MPV 11.3 FL (7.4-10.4); NEUT# 9.88 X1000 (1.4-6.5); NEUT% 68.4 % (42.2-75.2); PLT 274 X1000 (130-400); RBC 4.96 XMIL (4.2-5.4); RDW 15.1 % (11.5-14.5); WBC 14.46 X1000 (4.8-10.8)
[2018-09-22 10:47] LABS: BILIRUBIN URINE NEGATIVE (NEGATIVE); BLOOD URINE TRACE (NEGATIVE); COLOR YELLOW; GLUCOSE URINE NEGATIVE (NEGATIVE); KETONE URINE NEGATIVE (NEGATIVE); LEUKOCYTES URINE SMALL (NEGATIVE); NITRITE URINE NEGATIVE (NEGATIVE); PH URINE 6.5; PROTEIN URINE 70 mg/dL (NEGATIVE); SP GRAVITY URINE 1.022; TURBIDITY URINE CLEAR (CLEAR); UR EPITHELIAL CELLS <10 /HPF (<10); URINE BACTERIA 2+ /HPF; URINE RBC <10 /HPF (<10); UROBILINOGEN URINE 2 mg/dL (NORMAL)
[2018-09-22 10:58] LABS: INR 0.89; PROTIME 12.8 Seconds (11.0-16.0)
[2018-09-22 11:16] LABS: PTT 30.7 Seconds (22.3-41.8)
[2018-09-22 11:21] LABS: AGAP 14; BUN 11 mg/dL (8-22); CALCIUM 9.2 mg/dL (8.8-10.2); CHLORIDE 101 mmol/L (98-107); COSMO 279; CREATININE 0.9 mg/dL (0.5-0.9); ESTIMATED GFR > 60; GLUCOSE 144 mg/dL (70-104); POTASSIUM 3.8 mmol/L (3.5-5.1); SODIUM 139 mmol/L (136-145); TCO2 24 mmol/L (25-35)
[2018-10-19] MEDS ORDERED: FENTANYL ONE (07:45)
[2018-10-19] MEDS ORDERED: DIPRIVAN 1% ONE (07:45)
[2018-10-19] MEDS ORDERED: ROBINUL ONE ×2 (07:47→10:18)
[2018-10-19] MEDS ORDERED: PEPCID ONE (08:13)
[2018-10-19] MEDS ORDERED: REGLAN ONE (08:13)
[2018-10-19] MEDS ORDERED: COLACE ONE (08:13)
[2018-10-19] MEDS ORDERED: CELEBREX ONE (08:14)
[2018-10-19] MEDS ORDERED: LYRICA ONE (08:14)
[2018-10-19] MEDS ORDERED: LR 1,000 ML ONE (08:14)
[2018-10-19] MEDS ORDERED: KEFZOL 2 GM/D5W 2 GM/50 ML IVPB ONE (08:14)
[2018-10-19] MEDS ORDERED: ZEMURON ONE (08:28)
[2018-10-19 08:32] LABS: HEMATOCRIT 39.8 % (37.0-47.0); HEMOGLOBIN 12.4 g/dL (12.0-16.0); MCH 26.6 PG (27-31); MCHC 31.2 g/dL (33-37); MCV 85.2 FL (81-99); MPV 10.4 FL (7.4-10.4); RBC 4.67 XMIL (4.2-5.4); RDW 14.9 % (11.5-14.5); WBC 11.95 X1000 (4.8-10.8)
[2018-10-19] MEDS ORDERED: VALIUM ONE (08:33)
[2018-10-19] MEDS ORDERED: DURAMORPH ONE (08:58)
[2018-10-19] MEDS ORDERED: VANCOMYCIN ONE (08:58)
[2018-10-19] MEDS ORDERED: TORADOL ONE (08:58)
[2018-10-19] MEDS ORDERED: CYKLOKAPRON 1,000 MG/NS 2,000 MG/200 ML IVPB ONE (08:59)
[2018-10-19] MEDS ORDERED: EXPAREL 1.3% ONE (08:59)
[2018-10-19] MEDS ORDERED: SODIUM CHLORIDE 0.9% ONE (08:59)
[2018-10-19] MEDS ORDERED: SENSORCAINE-MPF 0.5%/EPI 1:200,000 ONE (08:59)
[2018-10-19] MEDS ORDERED: NEOSPORIN G.U. IRRIGANT ONE (08:59)
[2018-10-19] MEDS ORDERED: VERSED ONE (09:28)
[2018-10-19] MEDS ORDERED: ZOFRAN ONE (10:01)
[2018-10-19] MEDS ORDERED: DECADRON ONE (10:01)
[2018-10-19 10:05] LABS: URINE SOURCE CATH
[2018-10-19 10:08] LABS: BILIRUBIN URINE NEGATIVE (NEGATIVE); BLOOD URINE NEGATIVE (NEGATIVE); COLOR STRAW; GLUCOSE URINE NEGATIVE (NEGATIVE); KETONE URINE NEGATIVE (NEGATIVE); LEUKOCYTES URINE NEGATIVE (NEGATIVE); NITRITE URINE NEGATIVE (NEGATIVE); PH URINE 6.5; PROTEIN URINE NEGATIVE (NEGATIVE); TURBIDITY URINE CLEAR (CLEAR); UR EPITHELIAL CELLS <10 /HPF (<10); URINE BACTERIA NEGATIVE /HPF; URINE RBC <10 /HPF (<10); URINE WBC <10 /HPF (<10); UROBILINOGEN URINE NORMAL (NORMAL)
[2018-10-19] MEDS ORDERED: NEOSTIGMINE ONE (10:19)
[2018-10-19] MEDS ORDERED: MORPHINE ONE (10:59)
--- NOTE | 2018-10-19 11:18 | OPERATIVE NOTE ---
PROCEDURE DATE: 10/19/2018 PREOPERATIVE DIAGNOSIS: Degenerative joint disease, left knee. POSTOPERATIVE DIAGNOSIS: Degenerative joint disease, left knee. PROCEDURE PERFORMED: Left total knee replacement. SURGEON: Shaylee Butler MD. FARM CROPS TEACHER: BARBARA Casey. Mr. Nation is necessary for proper retraction and manipulation of the knee during the surgery. ANESTHESIA: General. COMPLICATION: None. PROCEDURE IN DETAIL: This 53-year-old female presents for left knee replacement. Risks, benefits and no guarantees were discussed and she is willing to proceed. She was taken to the operating room and satisfactory anesthesia obtained. The left leg was prepped and draped in usual sterile fashion. A time-out was taken to confirm operative site, procedure, and patient. The leg was wrapped with an Esmarch and tourniquet inflated to 300 mmHg. A midline incision was made over the front of the knee, followed by a quad tendon sparing arthrotomy. The patella was everted and resurfaced with freehand technique and subluxed laterally. An intramedullary hole was made in the distal femur and the distal femoral cutting block secured in 5 degrees of valgus. 10 mm was taken off the distal femur to accommodate for preop flexion contracture. The femur was sized to a size 5 DePuy Attune implant. The 4 in 1 block was secured and the anterior, posterior, and chamfer cuts sequentially made. The notch was created for posterior stabilized design and any remaining osteophytes debrided off the femur. Care was taken to preserve the neurovascular bundle and collateral ligaments at all times. The knee was flexed and a PCL retractor placed behind the tibia to protect the neurovascular bundle. The tibial cutting block was secured with extramedullary alignment and the tibial resection made. Flexion and extension gaps were roughly equal with a 7-mm spacer. The tibia was sized to a size 5 implant. Trial reduction was performed with a 7-mm spacer with good range of motion. The patella was sized to a 35 medialized dome patella. The drill holes were placed for the patella and femoral implant and the trial components removed. The bony surfaces were thoroughly irrigated with pulsatile lavage. Cement with a gram of vancomycin was then utilized to cement a DePuy size 5 rotating platform tibial base plate, a size 5 left posterior stabilized femoral component, standard width, and a 35 medialized dome patella. While the cement cured, the excess cement was removed with a Irvona elevator and the joint capsule injected with Exparel. A Hemovac drain was placed. After curing, a size 5, 7-mm thick posterior stabilized bearing was inserted into the tibial tray and the knee reduced. Final range of motion was 0 to 130 degrees with midline patellar tracking and excellent soft tissue balance. The arthrotomy was copiously irrigated with irrigant. It was closed over the drain with #1 Vicryl in the arthrotomy, 2-0 Vicryl in the subcutaneous and skin beny on the skin edges. Sterile dressings completed the closure and the patient was recovered from anesthesia and transferred to the recovery room in stable condition. No intraoperative complications were noted. Instrument count, sponge count were correct at the time of closure. cc: Ildefonso Butler MD
[2018-10-19] MEDS ORDERED: NS 1,000 ML ONE (11:39)
[2018-10-19] MEDS ORDERED: MORPHINE IV PRN ×2 (11:45)
[2018-10-19] MEDS ORDERED: OXY IR PO PRN (11:45)
[2018-10-19] MEDS ORDERED: ZOFRAN IV PRN (11:45)
[2018-10-19] MEDS ORDERED: DILAUDID ONE (11:51)
[2018-10-19] MEDS: ULTRAM PO SCH ×3 (12:41→23:36)
[2018-10-19] MEDS: TYLENOL PO SCH ×3 (12:42→23:37)
--- NOTE | 2018-10-19 13:19 | Diag Imaging Result Doc PS360 ---
EXAM: KNEE 1-2 VIEWS-LEFT INDICATION: post op TECHNIQUE: 2 views COMPARISON: 07/06/2017 FINDINGS: There has been a recent left knee arthroplasty. The arthroplasty hardware is in the expected position. There is no evidence of periprosthetic fracture. Anterior skin beny and a drainage catheter are in place IMPRESSION: Satisfactory postoperative knee. Electronically signed by Ildefonso Washington 10/19/2018 1:16 PM
[2018-10-19] MEDS: OXY IR PO PRN ×3 (15:02→22:34)
[2018-10-19] MEDS: KEFZOL 2 GM/D5W 2 GM/50 ML IVPB IV SCH (17:27)
--- NOTE | 2018-10-19 17:59 | PROGRESS NOTE ---
DATE: 10/19/2018 SUBJECTIVE DATA: Ms. Dodge is on postop day 0 of her left total knee replacement. She reports her knee feels well at this time. She states it already feels better than it did before surgery. OBJECTIVE DATA: There is good sensation in the left lower extremity. There are good pedal pulses. There is negative Homans sign. Bandages are clean and dry. The patient is able to flex her quadriceps muscles without difficulty. There is also good sensation to the left lower extremity. ASSESSMENT: Degenerative joint disease left knee with left total knee replacement. PLAN: We will plan on monitoring Ms. Dodge overnight. The plan is to send her home tomorrow if all is well, and there are no complications. We will check back on her in the morning to see how she is doing. Dictated by BARBARA Casey for Ildefonso Butler MD cc: BARBARA Casey MD
[2018-10-19] MEDS: COLACE PO SCH (20:03)
[2018-10-19] MEDS: CELEBREX PO SCH (20:04)
[2018-10-19] MEDS: NS 1,000 ML IV SCH (20:04)
[2018-10-19] MEDS: PERIDEX MT SCH (20:04)
[2018-10-19] MEDS: MORPHINE IV PRN (23:40)
[2018-10-20] MEDS: NS 1,000 ML IV SCH ×2 (00:28→06:59)
[2018-10-20] MEDS: KEFZOL 2 GM/D5W 2 GM/50 ML IVPB IV SCH (01:21)
[2018-10-20] MEDS: ROBITUSSIN-DM PO PRN ×2 (01:22→06:45)
[2018-10-20] MEDS: OXY IR PO PRN ×3 (01:22→10:15)
[2018-10-20] MEDS: MORPHINE IV PRN ×2 (04:15→06:44)
[2018-10-20 06:21] LABS: HEMATOCRIT 35.8 % (37.0-47.0)
[2018-10-20 06:28] LABS: CALCIUM 8.2 mg/dL (8.8-10.2); CREATININE 1.2 mg/dL (0.5-0.9); POTASSIUM 5.4 mmol/L (3.5-5.1)
--- NOTE | 2018-10-20 08:17 | PROGRESS NOTE ---
DATE: 10/20/2018 SUBJECTIVE DATA: Ms. Dodge is on postop day 1 of left total knee replacement. She reports she has had some throbbing pain in her knee throughout the night, but at this time it has went away. She reports her pain is a 2/10 at this time. She also reports that she has not been on physical therapy yet. OBJECTIVE DATA: There is good sensation in the left lower extremity. There are good pedal pulses. There is negative Homans sign. The bandages are clean and dry. The patient is able to flex her quadriceps muscles without difficulty. There is good capillary refill. ASSESSMENT: Degenerative joint disease, left knee with left total knee replacement. PLAN: Plan on sending Ms. Dodge home today. We will give her physical therapy prescription to start therapy outpatient right away at [facility]. I have also given her a prescription for Danforth for pain and for aspirin to prevent DVTs. I placed her on a precautionary antibiotic with cephalexin. We will see her back in the office in roughly 10 to 14 days for staple removal. Dictated by BARBARA Casey for Ildefonso Butler MD cc: BARBARA Casey MD
[2018-10-20] MEDS ORDERED: PEPCID PO SCH (09:00)
[2018-10-20] MEDS ORDERED: ASPIRIN PO SCH (09:00)
[2018-10-20] MEDS ORDERED: TENORMIN PO SCH (09:00)
[2018-10-20] MEDS ORDERED: GLUCOPHAGE PO SCH (09:00)
[2018-10-20] MEDS ORDERED: LYRICA PO SCH (09:00)
[2018-10-20] MEDS ORDERED: XANAX PO SCH (09:00)
[2018-10-20] MEDS ORDERED: PROZAC PO SCH (09:00)
[2018-10-20] MEDS: COLACE PO SCH (09:11)
[2018-10-20] MEDS: CELEBREX PO SCH (09:11)
[2018-10-20] MEDS: TYLENOL PO SCH ×2 (09:12→14:36)
[2018-10-20] MEDS: PERIDEX MT SCH (09:12)
[2018-10-20] MEDS: ULTRAM PO SCH ×2 (09:13→14:36)
[2018-10-20 11:18] VITALS: BP 123/66
[2018-10-20] MEDS ORDERED: PNEUMOVAX 23 IM ONE (14:15)
== END 2018-10-20 14:42 | disposition home or self-care (01) ==
LOC: 4N 07:38 → OR 07:38
PROVIDERS: ADMIT Orthopaedic Surgery Adult Reconstructive Orthopaedic Surgery; ATTEND Orthopaedic Surgery Adult Reconstructive Orthopaedic Surgery
CPT/HCPCS: 73560; 80048; 81001; 82948; 85014; 85018; 85025; 85027; 85610; 85730; 86850; 86900; 86901; 88305; 88311; 90732; 93005; 93010; 94761; 94799; 97116; 97162; A9270; C9290; J0690; J1100; J1170; J1885; J2250; J2270; J2274; J2275; J2405; J3010; J3370; J7030; J7120; Q9974; XXXXX

== ENCOUNTER 2019-05-12 00:54 | Observation (INO) ==
[2019-05-12] MEDS ORDERED: ASPIRIN ONE ×2 (01:18→05:34)
[2019-05-12] MEDS ORDERED: TORADOL IV ONE (04:15)
[2019-05-12] MEDS ORDERED: TORADOL ONE (04:25)
[2019-05-12] MEDS ORDERED: ASPIRIN PO ONE (05:10)
[2019-05-12] MEDS ORDERED: ZOFRAN IV ONE (05:25)
[2019-05-12] MEDS ORDERED: MORPHINE IV ONE ×2 (05:25→23:32)
[2019-05-12] MEDS ORDERED: ZOFRAN ONE (05:34)
[2019-05-12] MEDS ORDERED: MORPHINE ONE (05:34)
[2019-05-12 06:48] LABS: HEMATOCRIT 40.4 % (37.0-47.0); HEMOGLOBIN 13.7 g/dL (12.0-16.0); MCH 28.4 PG (27-31); MCHC 33.9 g/dL (33-37); MCV 83.8 FL (81-99); PLT 242 X1000 (130-400); RBC 4.82 XMIL (4.2-5.4); RDW 14.6 % (11.5-14.5); WBC 11.07 X1000 (4.8-10.8)
[2019-05-12 06:49] LABS: BASO% 0.3 % (0.0-0.8); EOS% 1.9 % (0.0-10.0); IMM GRAN% 0.3 % (0.0-0.5); MONO% 7.1 % (1.7-9.3); MPV 11.1 FL (7.4-10.4); NEUT# 6.25 X1000 (1.4-6.5); NEUT% 56.4 % (42.2-75.2)
[2019-05-12 06:50] LABS: BASO# 0.03 X1000 (0.0-0.2); EOS# 0.21 X1000 (0.0-0.7); IMM GRAN# 0.03 X1000 (0.0-0.04); LYMPH# 3.76 X1000 (1.2-3.4); MONO# 0.79 X1000 (0.11-0.59); PTT 32.2 Seconds (22.3-41.8)
[2019-05-12 06:51] LABS: INR 0.97
[2019-05-12 07:41] LABS: AGAP 13; ALB/GLOB RATIO 1.2; ALBUMIN 4.1 g/dL (3.5-5.0); ALKALINE PHOSPHATASE 142 U/L (32-104); BUN 12 mg/dL (8-22); CALCIUM 9.2 mg/dL (8.8-10.2); CHLORIDE 102 mmol/L (98-107); COSMO 278; CREATININE 1.2 mg/dL (0.5-0.9); GLUCOSE 120 mg/dL (70-104); GOT 15 U/L (10-30); GPT 16 U/L (10-36); POTASSIUM 3.6 mmol/L (3.5-5.1); SODIUM 139 mmol/L (136-145); TCO2 24 mmol/L (25-35); TOTAL BILIRUBIN 0.35 mg/dL (0.20-1.00); TOTAL PROTEIN 7.5 g/dL (6.3-8.3)
--- NOTE | 2019-05-12 08:55 | Diag Imaging Result Doc PS360 ---
EXAM: CHEST-2 VIEWS HISTORY: CP, SOB, SHOULDER PAIN TECHNIQUE: Chest two views COMPARISON: 03/24/2017 FINDINGS: The lungs are well expanded. The heart is not enlarged. The vessels are not distended. There are no infiltrates. No pleural effusions. There has been surgery to the lower neck. IMPRESSION: No acute abnormality. Electronically signed by Sergio Louise 05/12/2019 8:53 AM
[2019-05-12] MEDS ORDERED: TORADOL IV PRN (10:17)
[2019-05-12] MEDS ORDERED: TYLENOL PO PRN (10:17)
[2019-05-12] MEDS ORDERED: ZOFRAN IV PRN (10:17)
--- NOTE | 2019-05-12 10:34 | EKG Report ---
Test Performed on : 05/12/2019 01:00:28 AM Test Reason : ED. No order in [place] Blood Pressure : / mmHG Vent. Rate : 071 BPM Atrial Rate : 202 BPM P-R Int : 000 ms QRS Dur : 058 ms QT Int : 382 ms P-R-T Axes : 000 006 027 degrees QTc Int : 415 ms Accelerated Junctional rhythm. Low voltage QRS Septal infarct (cited on or before 24-MAR-2017) Abnormal ECG When compared with ECG of 22-SEP-2018 09:50, Junctional rhythm. has replaced Sinus rhythm. Questionable change in initial forces of Septal leads ST now depressed in Anterior leads Unconfirmed Result
--- NOTE | 2019-05-12 11:19 | HISTORY AND PHYSICAL ---
PRIMARY CARE PHYSICIAN: Dr. Perales. CHIEF COMPLAINT: Chest pain substernal with shortness of breath and diaphoresis. HISTORY OF PRESENTING ILLNESS: This is a 53-year-old female who presents to [facility] with complaints of substernal chest pain that radiated to her right arm. States the pain was sharp and intermittent with some shortness of breath and diaphoresis. Upon evaluation, the pain is reproducible with palpation to the sternal area. Her workup showed 2 sets of cardiac enzymes to be negative. ProBNP was normal at 46. Her chest x-ray showed no acute abnormality, but she will be admitted for further evaluation and treatment. PAST MEDICAL HISTORY: COPD, obstructive sleep apnea, hypertension, restless legs syndrome, depression, and chronic pain. PAST SURGICAL HISTORY: Left knee surgery x2, cataract surgery, lumbar surgery, neck surgery x2, breast biopsy and a right gluteal abscess with I D. FAMILY HISTORY: Her mom had tongue cancer and her father had laryngeal cancer. SOCIAL HISTORY: She currently lives alone. Smokes a pack of cigarettes a day, and has done so since she was 18 years old. Denies any alcohol use and uses marijuana occasionally. ALLERGIES: Haldol. HOME MEDICATIONS: A current list will need to be obtained, reconciled, reviewed and restarted as appropriate. We will place an order for nursing to update and confirm home medications. LABORATORY DATA: White blood cell count of 11.07, hemoglobin 13.7, hematocrit 40.4, and platelets 242,000. PT and INR of 13 and 0.97. Sodium 139, potassium 3.6, chloride 102, CO2 24, BUN of 12, creatinine 1.2, and glucose 128. Cardiac enzymes x2 sets were negative. ProBNP of 46. Chest x- ray showed no acute abnormality. REVIEW OF SYSTEMS: She denied any fever, chills, blurred vision, or dizziness. She was positive for substernal chest pain that radiated to her right arm, was intermittent, and had associated shortness of breath and diaphoresis. Denied any abdominal pain, constipation, diarrhea, burning or hurting with urination. PHYSICAL EXAMINATION: VITAL SIGNS: On arrival, she had a temperature of 97.8 degrees, pulse 91, respirations 17, blood pressure 135/91, and saturating 97% on room air. GENERAL: This is a 53-year-old female lying in the bed and answers questions appropriately. HEENT: Normocephalic, atraumatic. Normal ENT inspection. Oropharynx and nares are clear. EYES: Pupils are equal, round, and reactive to light and accommodation. Extraocular movements are intact. NECK: Normal inspection. Normal range of motion. LUNGS: Clear to auscultation bilaterally with equal lung expansion and chest wall movement. HEART: Regular rate and rhythm. No murmurs, rubs, or gallops. She has a reproducible pain to palpation to the substernal chest area. ABDOMEN: Soft, nontender, and nondistended. Bowel sounds are present x4 quadrants. MUSCULOSKELETAL: 5/5 strength x4 extremities. NEUROLOGICAL: The cranial nerves 2-12 appear grossly intact. ASSESSMENT: 1. Chest pain. 2. Likely costochondritis to the substernal area. 3. Tobacco abuse. 4. Marijuana abuse. 5. Hypertension. PLAN: She will be admitted to the medical unit, placed on telemetry, and healthy heart diet. We need to update and confirm home medications. Apply SCD's for DVT prophylaxis. We will place her on Toradol 15 mg IV q.6 hours p.r.n. She did receive a dose of this in the ER, and states that it helped tremendously. We are going to check a set of CK and troponin now to complete her series. Further orders after seen by attending. Dictated by BARBARA Norman for Valdez Snowden MD cc: BARBRAA Norman MD Dr. Awoniyi, MD I agree with most components of history, physical, assessment and plan. A separate addendum has been dictated. [facility] H[facility]PITALArcelia
[2019-05-12] MEDS: NICODERM PATCH TD SCH (15:39)
[2019-05-12] MEDS ORDERED: NITROGLYCERIN SL PRN (15:56)
[2019-05-12] MEDS ORDERED: ZOSTRIX TOP PRN (16:08)
--- NOTE | 2019-05-12 16:08 | EKG Report ---
Test Performed on : 05/12/2019 3:37:32 PM Test Reason : Follow up EKG Blood Pressure : / mmHG Vent. Rate : 067 BPM Atrial Rate : 067 BPM P-R Int : 184 ms QRS Dur : 082 ms QT Int : 422 ms P-R-T Axes : 049 022 044 degrees QTc Int : 445 ms Normal sinus rhythm. Low voltage QRS Borderline ECG When compared with ECG of 12-MAY-2019 01:00, (Unconfirmed) Sinus rhythm. has replaced Junctional rhythm. Criteria for Septal infarct are no longer present ST no longer depressed in Anterior leads Confirmed by Kaela KELLY, Terell Coyle ([id number]) on 05/12/2019 8:56:22 PM
[2019-05-12] MEDS: MOTRIN PO SCH (18:44)
[2019-05-12] MEDS: NORCO-7.5 PO PRN (19:50)
[2019-05-12] MEDS: XANAX PO SCH ×2 (19:55→22:55)
--- NOTE | 2019-05-12 20:23 | HISTORY AND PHYSICAL ---
ADDENDUM: Ms. Dodge is a 53-year-old lady with past medical history of COPD, obstructive sleep apnea, not compliant with CPAP, essential hypertension, tobacco abuse, restless legs syndrome with chronic pain, depression, left lower extremity DVT, status post 3 months of Eliquis that she completed in January 2019 and since then on aspirin 325 mg daily, who comes in with chief complaints of chest pain, shortness of breath associated with diaphoresis with duration of few hours. The patient was in her usual state of health until yesterday night; however, since then she has been experiencing chest pain, which is located in the center of the chest radiating towards her back. There are no aggravating factors. When she takes deep breath and tries to rest, the chest pain gets better. She denies known history of coronary artery disease, congestive heart failure. She does have family history of coronary artery disease and in grandparents, essential hypertension, active tobacco. On arrival, EKG and troponins were unremarkable. PHYSICAL EXAMINATION: VITALS: Temperature of 98.2 degrees, pulse 67, respiratory rate 16, blood pressure 106/75. She is saturating 96% on room air. GENERAL: Does not appear in acute distress. HEENT: Oral cavity is moist. LUNGS: Air entry bilaterally equal. No wheeze, rhonchi, crackles. CARDIOVASCULAR: S1, S2 normal. No murmur or gallop. Significant chest wall tenderness over bilateral chest and ribcage area. Some tenderness in epigastric region as well. ABDOMEN: Soft, nontender, otherwise active bowel sounds. No hepatosplenomegaly. EXTREMITY: No lower extremity edema. NEUROLOGICAL: She is alert, oriented x3. She does have some healing ulcers affecting her foot and hands. LABORATORY DATA: Suggestive of mild leukocytosis of 11,000. Her D-dimer is negative. She does have a creatinine of 1.2, which appears to be her baseline. Her troponins have been negative x4. MICROBIOLOGY: No data. IMAGING: Chest x-ray did not have any acute abnormalities. Electrocardiogram had normal sinus rhythm, low voltage QRS. Initial EKG had a lot of artifact. ASSESSMENT AND PLAN: 1. Atypical chest pain likely costochondritis. Her viral infection of [id number] disease could have triggered her musculoskeletal costochondritis chest pain. I will start patient on capsaicin topical cream. We will keep her on Ketoralac. EKG and troponins have been unremarkable, though she is a smoker and hypertensive. The likelihood of coronary artery disease contributing to her chest pain is extremely low considering the nature of her chest pain. In any case, I will get echocardiogram. 2. Tobacco abuse. The patient was encouraged to quit tobacco. 3. Others: Continue her aspirin for long-term DVT prophylaxis; atenolol and amlodipine for hypertension; alprazolam and fluoxetine for chronic anxiety; pregabalin for chronic neuropathic pain. DISPOSITION: I will await echocardiogram. We will monitor patient overnight. Plan of care discussed with her. Her questions have been answered. cc: Valdez Snowden MD
[2019-05-13] MEDS: MOTRIN PO SCH ×3 (02:41→13:42)
[2019-05-13] MEDS: NORCO-7.5 PO PRN ×3 (02:42→14:07)
[2019-05-13] MEDS ORDERED: PRILOSEC PO SCH (07:00)
[2019-05-13] MEDS ORDERED: GLUCOPHAGE PO SCH (08:00)
[2019-05-13] MEDS: NICODERM PATCH TD SCH (08:01)
[2019-05-13] MEDS: XANAX PO SCH ×2 (08:02→13:45)
[2019-05-13] MEDS ORDERED: NORVASC PO SCH (09:00)
[2019-05-13] MEDS ORDERED: TENORMIN PO SCH (09:00)
[2019-05-13] MEDS ORDERED: ASPIRIN PO SCH (09:00)
[2019-05-13] MEDS ORDERED: LYRICA PO SCH (09:00)
[2019-05-13] MEDS ORDERED: PROZAC PO SCH (09:00)
[2019-05-13] MEDS ORDERED: FLEXERIL PO SCH (13:15)
--- NOTE | 2019-05-13 14:02 | ECHO REPORT ---
ORDER DATE: 05/12/2019 INTERPRETING PHYSICIAN: Dario Atkins MD. ECHOCARDIOGRAPHIC MEASUREMENTS: 1. Interventricular septum 1.0. 2. Left ventricular posterior wall 0.8. 3. Left ventricular diastolic diameter 4.7. 4. Left atrium 3.8. FINDINGS: 1. Aortic valve leaflets are trileaflet. Mitral valve was normal. Tricuspid valve was normal. 2. There is mild mitral regurgitation, mild tricuspid regurgitation. Peak velocity across the tricuspid valve was 2.3 m/sec. Pulmonary artery systolic pressure of 32 mmHg. There is mild mitral regurgitation. 3. Peak velocity across the aortic valve was less than 2 m/sec. There is no aortic stenosis or regurgitation. Normal left ventricular cavity size. Estimated ejection fraction of 65%. 4. There is no pericardial effusion or obvious intracardiac mass or thrombus seen. cc: MD Valdez Burnham MD
[2019-05-13 15:41] VITALS: BP 116/85
--- NOTE | 2019-05-13 15:54 | DISCHARGE SUMMARY ---
ADMISSION DATE: 05/12/2019 DISCHARGE DATE: 05/13/2019 DISCHARGE DISPOSITION: Home. DISCHARGE CONDITION: Her chest pain has been decreasing since administration of anti-inflammatory medication. Her echocardiogram has been unremarkable. The patient was counseled about the nature of costochondritis and then it may take several days before it starts getting better. She understood it and she understood to have a follow up with her regular physician next week. DISCHARGE DIAGNOSES: 1. Acute costochondritis. 2. Atypical chest pain. 3. Tobacco abuse. 4. [id number] disease. OTHER DIAGNOSES: 1. Chronic obstructive pulmonary disease. 2. Obstructive sleep apnea, not compliant with CPAP. 3. Essential hypertension. 4. Tobacco use disorder. 5. Chronic pain syndrome. 6. Restless legs syndrome. 7. Depression. 8. Left lower extremity DVT, status post 3 months of Eliquis and since then on aspirin 325 mg since January 2019. DISCHARGE MEDICATIONS: Alprazolam 1 mg t.i.d., amlodipine 10 mg daily, aspirin 325 mg daily, atenolol 50 mg daily, fluoxetine 20 mg daily, metformin 500 mg with breakfast, pregabalin 150 mg daily, cyclobenzaprine 10 mg b.i.d. as needed for pain not controlled on ibuprofen, 10 tablets have been prescribed. Ibuprofen 400 mg every 12 hours, take twice daily for 3 days and then take up to twice daily as needed, acetaminophen 650 mg every 6 hours as needed. VITALS: At time of discharge, temperature 97.7 degrees, pulse 65, respiratory rate 18, blood pressure 128/94, saturating 96% on room air. PHYSICAL EXAMINATION: General: Does not appear in any acute distress. Oral cavity is moist. Lungs: Air entry bilaterally equal. No wheeze, rhonchi, crackles. Cardiovascular: S1, S2 normal. No murmur, rub, or gallop. She still has significant chest wall tenderness, which is, however, diminished remarkably from yesterday in the sternal, costochondral, and ribcage region. No epigastric tenderness today. Abdomen: Soft, nontender, active bowel sounds. No hepatosplenomegaly. Extremity: No lower extremity edema. She is alert and oriented x 3. She has healing ulcers affecting her mouth and hands. LABS: WBC 03272, hemoglobin 13.7, platelet 242,000. Her D-dimer was 0.4. INR was 0.9. Her creatinine was 1.2, which is her baseline. Her troponins were negative x4. Significant micro during hospital admission: None. IMAGING: Chest x-ray on admission did not have any organized consolidation or pleural effusion. Echocardiogram had ejection fraction of 65% without aortic stenosis, regurgitation, or left ventricular dysfunction. There was no pericardial effusion either. Electrocardiogram performed had normal sinus rhythm and low voltage QRS complex. HOSPITAL COURSE SUMMARY: Ms. Dodge is a 53-year-old lady with past medical history of DVT in left lower extremity requiring Eliquis for 3 months, which she completed in January 2019, and since then she has been on aspirin 325 mg daily, came in with chief complaints of chest pain, shortness of breath associated with diaphoresis of a few hours' duration. The patient was in her usual state of health yesterday night. However, since then she has been experiencing chest pain which is sharp, located in the center of the chest, sometimes radiating towards her back. There were no aggravating factors. In fact, when she tried to take a deep breath, it got better. She did not have any known history of coronary artery disease, congestive heart failure. In the emergency room, she was hemodynamically stable, but considering her chest wall pain, hospitalist team was consulted for further management. The patient was admitted and serial EKGs and troponins were drawn, which were unremarkable. Echocardiogram was also unremarkable. The patient's chest pain was remarkably reproducible on local palpation over sternum and rib cage, so she was started on ibuprofen. After starting ibuprofen, her chest pain had significantly gone down and she was feeling better than she did on presentation so we decided to discharge her on oral ibuprofen as well as cyclobenzaprine. She was advised to follow up with her regular doctor. More than 30 minutes spent in discharging this patient. cc: Valdez Snowden MD
== END 2019-05-13 16:00 | disposition home or self-care (01) ==
LOC: ED 00:54 → 4N 00:54
PROVIDERS: ATTEND Internal Medicine